=== PATIENT | male | born 1940 | race Caucasian/White ===

== ENCOUNTER → 2016-05-16 | Outpatient (CLI) | payer OTHER, MEDICARE | LOC: FIMAGING 11:25 | PROVIDERS: ATTEND Nurse Practitioner Family | DX: L03.115 Cellulitis of right lower limb (principal) ==

== ENCOUNTER 2017-03-26 20:30 | Emergency (ER) | payer OTHER, MEDICARE ==
[2017-03-26 21:00] VITALS: BP 142/75; PULSE 63; RESP 16; TEMP 97.9; O2SAT 94
--- NOTE | 2017-03-26 22:44 | EDPHY ---
H & P Time Seen by Provider: 03/26/17 21:13 HPI/ROS: Chief complaint. Thumb pain HPI. 77-year-old male presents emergency department with right thumb pain for 3 days. Denies trauma. No swelling. He had an episode of cellulitis in the past is concerned that the pain may be due to cellulitis. No fever. Pain at the base of his thumb with range of motion. Patient is right handed. ROS Constitutional. no fever/chills, no weakness Eyes. no problems with vision ENT. no sore throat, no nasal drainage Cardiovascular. no chest pain Respiratory. no shortness of breath, no cough Abdominal. no abdominal pain, no nausea/vomiting, no diarrhea . no problems urinating MS. Right thumb pain Skin. no rash Lymph. no swollen glands Neuro. no headache, no dizziness, no difficulty walking or with speech Past Medical/Surgical History: Cellulitis, cardiac ablation, atrial fibrillation Social History: , nonsmoker, no alcohol Smoking Status: Never smoked Physical Exam: General Appearance: Alert pleasant well-developed male mild distress vital signs are stable Eyes: Pupils equal and round no pallor or injection. ENT, Mouth: Mucous membranes are moist. Respiratory: There are no retractions, lungs are clear to auscultation. Cardiovascular: Regular rate and rhythm. Gastrointestinal: Abdomen is soft and nontender, no masses, bowel sounds normal. Neurological: Awake and alert, sensory and motor exams grossly normal. Skin: Warm and dry, no rashes. Musculoskeletal: Neck is supple nontender. Extremities symmetrical, full range of motion. Tenderness at the MP joint right thumb base. No obvious swelling or deformity. No redness or warmth. Distal motor vascular sensitivity is intact Psychiatric: Patient is oriented X 3, there is no agitation. 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 Findings were discussed with Dr. Kashif Enamorado at 21:25, on 03/26/2017. X-ray right hand reviewed by me and discussed with Dr. Serna reveals osteoarthritic changes at the base of the thumb where he is tender. No fracture dislocation ED Course/Re-evaluation: On re-evaluation patient is stable. He and I reviewed the x-ray together. We discussed treatment plan including criteria for return importance of follow-up and further evaluation. He expresses understanding and agreement Patient declines a splint Differential Diagnosis: I considered cellulitis, gout, a trauma, degenerative disease Departure - Departure Disposition: Home, Routine, Self-Care Clinical Impression: Thumb pain Qualifiers: Laterality: right Qualified Code(s): M79.644 - Pain in right finger(s) Condition: Good Instructions: Arthritis (ED) Additional Instructions: Return for worsening symptoms Referrals: Darcy Patel MD [Primary Care Provider] - As per Instructions
== END 2017-03-26 21:36 | disposition home or self-care (01) ==
DX: M79.644 Pain in right finger(s) (principal)

== ENCOUNTER → 2017-04-20 | Outpatient (CLI) | payer OTHER, MEDICARE | LOC: BHFA 13:00 | PROVIDERS: ATTEND Internal Medicine Cardiovascular Disease | DX: R94.31 Abnormal electrocardiogram [ECG] [EKG] (principal) | CPT/HCPCS: 78452; 93017; A9500 ==

== ENCOUNTER → 2017-04-30 | Outpatient (CLI) | payer OTHER, MEDICARE | LOC: BHFA 16:15 | PROVIDERS: ATTEND Internal Medicine Cardiovascular Disease | DX: Z01.818 Encounter for other preprocedural examination (principal) ==

== ENCOUNTER → 2018-01-30 | Outpatient (CLI) | payer OTHER, MEDICARE | LOC: SUPIMAGING 10:35 | PROVIDERS: ATTEND Registered Nurse | DX: S42.142A Displaced fracture of glenoid cavity of scapula, left shoulder, initial encounter for closed fracture (principal); M47.812 Spondylosis without myelopathy or radiculopathy, cervical region; M43.8X2 Other specified deforming dorsopathies, cervical region | CPT/HCPCS: 72050-PN; 73030-PN ==

== ENCOUNTER 2018-01-31 18:56 | Emergency (ER) | payer OTHER, MEDICARE ==
[2018-01-31] MEDS ORDERED: KETOROLAC 30 MG/1 ML SDV IM ONE (19:27)
--- NOTE | 2018-01-31 19:30 | EDPHY ---
HPI/HX/ROS/PE/MDM Narrative: CHIEF COMPLAINT: Right-sided neck pain HISTORY OF PRESENT ILLNESS: The patient is a 78 y/o male arriving with his complaining of right neck and trapezius pain following a recent comminuted left glenoid fracture secondary to a fall while skiing on Thursday, two days ago. While skiing, he had to swerve to avoid another person who cut him off causing him to fall onto outstretched left arm. He was not wearing a helmet, but denies striking his head or losing consciousness. He had pain immediately in his left shoulder and mild transient nausea. Then next day he went to urgent care for evaluation and an x-ray showed a left glenoid fracture and possible neck spasm on c-spine films. He was placed in a sling and prescribed Percocet and Flexeril and given a referral to ortho. Over the next day he developed new pain along his right trapezius and the right side of his neck that is unchanged with pain medication and severe today. The pain is his left shoulder is manageable. He takes a daily 81mg aspirin, but no anticoagulants. No fever, chills, chest pain, shortness of breath, palpitations, vomiting, diarrhea, urinary complaints, headache, lightheadedness, weakness, paresthesias. REVIEW OF SYSTEMS: Aside from elements discussed in the HPI, a comprehensive 10-point review of systems was reviewed and is negative. PAST MEDICAL HISTORY: Atrial fibrillation (no episodes for 4 years) SOCIAL HISTORY: at bedside. Lives in [place]. Retired. VITAL SIGNS: Reviewed by me GENERAL: Well-developed, well-nourished, resting comfortably in no respiratory distress. HEENT: Atraumatic. Eyes: No icterus, no injection. Mouth: moist mucous membranes. No erythema or lesions. Neck: supple with no adenopathy. LUNGS: Clear to auscultation bilaterally, no wheezes, rhonchi or rales. CARDIAC: Regular rate and rhythm, no rubs, murmurs or gallops. ABDOMEN: Soft, nontender, nondistended. BACK: No CVA tenderness. Right paraspinous and trapezius tenderness and mild spasm. EXTREMITIES: No edema. ROM of left shoulder limited, otherwise range of motion is normal throughout. NEURO: Alert and oriented, grossly nonfocal. SKIN: Warm and dry, no rash. PSYCHIATRIC: Normal mentation, no agitation. Portions of this note were transcribed by a director of medical staff services. I personally performed a history, physical exam, medical decision making, and confirmed accuracy of information the transcribed note. ED Course: This is a 78 y/o male 2-days post comminuted left glenoid fracture secondary to a fall while skiing who presents with right neck and trapezius pain and spasm. He has right paraspinous and trapezius tenderness and mild spasm on exam. Plan for IV, labs, EKG, head CT, and neck CT. 30mg IV Toradol and 4mg IV Zofran ordered. The 12 lead EKG was interpreted by myself. Sinus mechanism. See hard copy and/ or "tracemaster" electronic copy for interpretation. Head CT is negative for acute findings. Neck CT shows degenerative changes. Reassessed patient and discussed findings. Recommend discharge home with oxycodone and Valium for pain and recommendation to followup with orthopedist as planned. Standard care instructions and return precautions discussed. MDM: Differential diagnosis for the patient's injury was considered including but not limited to cervical sprain, cervical strain, muscle spasm, fracture, ligamentous instability. - Data Points Imaging Results: Cervical Spine CT 01/31/18 19:27 Impression: 1. No fracture identified. Multilevel degenerative disk and facet changes are present. 2. Likely asymmetrical scarring at the right lung apex. If there are any old outside chest imaging studies, we would be happy to review them, to assess for interval change. Results discussed with Dr. Farmer at 8:07 PM. If there is concern for instability, then consider lateral flexion-extension views, cervical fluoroscopy and/or cervical MRI. General information for patients regarding this examination can be found at [email or web address]. If you have questions or comments about this report, please contact me at (hospital) or [phone] (cell). Head CT 01/31/18 20:08 Impression: Head CT within normal limits. A message was left for Dr. Yancy Farmer at 8:30 PM. General information for patients regarding this examination can be found at [email or web address]. If you have questions or comments about this report, please contact me at [phone] (hospital) or [phone] (cell). Imaging: Discussed imaging studies w/ inbound call center representative Radiologist, I viewed and interpreted images myself Medications Given: Discontinued Medications Diazepam (Valium 5 Mg Prepack#4) 1 btl TAKEHOME EDNOW ONE Stop: 01/31/18 21:11 Last Admin: 01/31/18 21:13 Dose: 1 btl Ketorolac Tromethamine (Toradol) 30 mg IM EDNOW ONE Stop: 01/31/18 19:28 Last Admin: 01/31/18 19:40 Dose: 30 mg Ondansetron HCl (Zofran Odt) 4 mg PO EDNOW ONE Stop: 01/31/18 19:52 Last Admin: 01/31/18 19:57 Dose: 4 mg Oxycodone/Acetaminophen (Percocet 5/325mg Prepack#4) 1 btl TAKEHOME EDNOW ONE Stop: 01/31/18 21:11 Last Admin: 01/31/18 21:13 Dose: 1 btl General Time Seen by Provider: 01/31/18 19:10 Initial Vital Signs: Initial Vital Signs Temperature (C) 36.3 C 01/31/18 19:05 Heart Rate 69 01/31/18 19:05 Respiratory Rate 19 01/31/18 19:05 Blood Pressure 161/89 H 01/31/18 19:05 O2 Sat (%) 95 01/31/18 19:05 O2 Delivery Mode Room Air Allergies/Adverse Reactions: No Known Allergies Allergy (Unverified 03/26/17 21:00) Home Medications: Medication Instructions Recorded NK [No Known Home Meds] 03/26/17 Diazepam [Valium 5 MG (*)] 2.5 - 5 mg PO TID PRN #15 tab 01/31/18 oxyCODONE/APAP 5/325 [Percocet 1 tab PO QID PRN #14 tab 01/31/18 5/325 (*)] Departure - Departure Disposition: Home, Routine, Self-Care Clinical Impression: Trapezius muscle spasm, Neck pain Condition: Good Instructions: Muscle Spasm (ED), Acute Neck Pain (ED) Additional Instructions: 1. Stop Flexeril. 2. Take either the hydrocodone or oxycodone for pain, but do not taken them together. These are both narcotic medications and can make you drowsy and constipated. Do not use before driving. 3. Use Valium as prescribed when needed for muscle spasm. This medication can also make you drowsy. It's okay to alternate this with the narcotic, but best not to take at exactly the same time. 4. Follow up with your orthopedist as directed for your shoulder fracture. Continue wearing sling until that visit. 5. Apply ice intermittently to sore areas over the next 1-2 days. 6. Take 600mg ibuprofen every 8 hours for baseline pain control until follow up with orthopedist. 7. Return to the ED for any worsening of condition. Referrals: Darcy Patel MD [Primary Care Provider] - As per Instructions Prescriptions: Diazepam [Valium 5 MG (*)] 2.5 - 5 mg PO TID PRN #15 tab PRN Reason: Spasms oxyCODONE/APAP 5/325 [Percocet 5/325 (*)] 1 tab PO QID PRN #14 tab PRN Reason: Pain Report Scribed for: Yancy Farmer Report Scribed by: Kimberly Benites Date of Report: 01/31/18 Time of Report: 19:31
[2018-01-31] MEDS ORDERED: ONDANSETRON DISINTEGRATING 4 MG TAB PO ONE (19:51)
[2018-01-31] MEDS ORDERED: OXYCODONE/APAP 5/325MG PREPACK#4 BTL TAKEHOME ONE (21:10)
[2018-01-31] MEDS ORDERED: DIAZEPAM 5 MG PREPACK#4 BTL TAKEHOME ONE (21:10)
[2018-01-31 21:23] VITALS: BP 131/78
--- NOTE | 2018-01-31 23:41 | CPEKG ---
Test Reason : OPEN Blood Pressure : / mmHG Vent. Rate : 061 BPM Atrial Rate : 060 BPM P-R Int : 189 ms QRS Dur : 103 ms QT Int : 449 ms P-R-T Axes : -32 -59 024 degrees QTc Int : 453 ms Sinus rhythm LAD, consider left anterior fascicular block Abnormal R-wave progression, early transition Borderline T wave abnormalities Confirmed by Yancy Farmer ([id number]) on 01/31/2018 11:41:17 PM Referred By: Confirmed By:Yancy Farmer
== END 2018-01-31 21:22 | disposition home or self-care (01) ==
DX: M62.838 Other muscle spasm (principal)
CPT/HCPCS: 70450; 72125; 93005; 96372; 99285; J1885